=== PATIENT | female | born 1995 | race Caucasian/White ===

== ENCOUNTER 2016-12-21 02:15 | Emergency (ER) | payer OTHER ==
[~2016-12-21] VITALS: Ht 162.6 cm; Wt 79.4 kg
[2016-12-21] MEDS ORDERED: HUMULIN R100 UNIT/1 SUBQ (02:26)
[2016-12-21] MEDS ORDERED: LANTUS100 U/ML SUBQ (02:26)
[2016-12-21] MEDS ORDERED: NAPROXEN500 M1 PO (02:27)
[2016-12-21 02:42] LABS: URINE SOURCE CLEAN CATCH
[2016-12-21 02:45] LABS: URINE APPEARANCE CLEAR; URINE BILIRUBIN NEG (NEG); URINE BLOOD NEG (NEG); URINE COLOR YELLOW; URINE GLUCOSE 300 MG/DL (NORM); URINE LEUKOCYTE ESTERASE NEG (NEG); URINE NITRATE NEG (NEG); URINE PROTEIN NEG (NEG); URINE UROBILINOGEN 0.2 MG/DL (NORM)
[2016-12-21 02:48] LABS: MICRO INDICATED? NO; URINE KETONE 3+ (NEG)
== END 2016-12-21 02:59 | disposition home or self-care (01) ==
LOC: SED 02:15
PROVIDERS: Emergency Medicine
DX: Z32.01 Encounter for pregnancy test, result positive (principal); E10.9 Type 1 diabetes mellitus without complications; Z79.4 Long term (current) use of insulin; F31.9 Bipolar disorder, unspecified; Z98.890 Other specified postprocedural states; F17.210 Nicotine dependence, cigarettes, uncomplicated; Z79.899 Other long term (current) drug therapy
CPT/HCPCS: 81003; 84703; 99282